=== PATIENT | male | born 1995 ===

== ENCOUNTER 2017-11-29 14:14 | Emergency (ER) | payer OTHER ==
[~2017-11-29] VITALS: Ht 165.1 cm; Wt 63.4 kg
[2017-11-29 14:17] VITALS: TEMP 36.5; Ht 165.1 cm; Wt 63.4 kg
[2017-11-29] MEDS ORDERED: CEFTRIAXONE SOD INJ 1 GM ADDVIAL IV STA (14:34)
[2017-11-29] MEDS ORDERED: LIDOCAINE/EPINEPHRINE 1% 20 ML VIAL INFIL ONE (14:45)
--- NOTE | 2017-11-29 14:50 | EMERGENCY ROOM VISIT NOTE ---
ED Visit Note First contact with patient: 14:20 CHIEF COMPLAINT: Foot laceration HISTORY OF PRESENT ILLNESS: This 22-year-old male patient presents to the emergency department with complaint of right foot pain after stepping on a piece of glass yesterday. Patient states that he was outside walking in his bare feet and stepped on a piece of broken beer bottle glass. He states that he washed the wound off with peroxide and covered with liquid Band-Aid to stop bleeding. Patient states that today his pain in his foot has been much worse especially with walking on the foot, and he has noticed increased swelling and redness of the area. He states that the pain is constant, throbbing, 5/10. He has taken ibuprofen yesterday with some improvement in the pain, and no medications today. Patient states that he went to [facility] today, who sent him to the ED for further evaluation. Patient denies any fevers or chills. The patient denies any other injuries. The patient's Tetanus shot is up to date. REVIEW OF SYSTEMS: A 6 system review of systems was completed with positives and pertinent negatives listed in the HPI. ALLERGIES: No known allergies. MEDICATIONS: No medications. PMH: No significant past medical or surgical history. Up-to-date on immunizations. SOCIAL HISTORY: Lives at home. He is a [employer] student. Denies tobacco use. PHYSICAL EXAM: Vital Signs: Reviewed Nurse's notes, vital signs stable. GENERAL : Pleasant and cooperative, in no acute distress, well-developed, well- nourished. SKIN: There is an erythematous indurated area on the sole of the right foot along the arch, with a small laceration at the center and scabbed material and skin glue over top. It is mildly fluctuant and very tender to palpation, warm to touch. No drainage noted.. There is a zone of inflammation around it, as well as some lymphangitic streaking upward towards the dorsum of the foot. There is no bleeding. Normal strength and movement of the right foot. Capillary refill less than 2 seconds. Normal sensation to light and sharp touch. HEART: Regular rate and rhythm, no murmurs, gallops, or rubs. Normal peripheral perfusion. 2+ radial and DP pulses of the extremities. No edema. LUNGS: Clear to auscultation bilaterally with no wheezes, rhonchi, crackles, or stridor. Equal expansion bilaterally. ABDOMEN: Soft, nontender, nondistended, normal bowel sounds throughout. NEURO: Alert, oriented 4. Normal strength and sensation in all 4 extremities. Normal speech. IMAGING: R FOOT MIN 3 VIEWS ROUTINE CLINICAL HISTORY: 22 years-old Male presenting with stepped on glass, eval FB. TECHNIQUE: Frontal, oblique, and lateral views of the right foot were obtained. COMPARISON: None. FINDINGS: No acute fracture or malalignment. No advanced degenerative change. Soft tissue swelling over the medial aspect of the hindfoot. No radiopaque foreign body. IMPRESSION: 1. No acute osseous injury. 2. Soft tissue swelling suggested over the medial hindfoot. 3. No radiopaque foreign body. Ultrasound is more sensitive for this diagnosis. EMERGENCY DEPARTMENT COURSE: I examined the patient. Differential diagnosis includes abscess, cellulitis, retained foreign body of the foot, among others. An x-ray of the foot was performed, there is no evidence of radiopaque foreign body on my exam. Bedside ultrasound was also utilized, confirming no presence of a foreign body in the soft tissue of the right foot. Labs are performed, noting leukocytosis with left shift, otherwise normal. The patient was given IV Rocephin and PO Bactrim to treat cellulitis of his foot. Verbal consent was obtained to perform the procedure. Using sterile technique, the wound was cleansed with Betadine. The area was sterilely draped. 2 ml of 1% buffered lidocaine with epinephrine was used to anesthetize the area on the sole of the right foot. Once the patient was anesthetized, the skin glue was removed and mild debridement was performed over 1 cm puncture wound to the sole of the foot. There was small amount of serous fluid drained from the wound, no purulent drainage noted. The puncture wound was further probed with a needle courier delivery driver and no purulent drainage was expressed. The puncture wound was then copiously irrigated with sterile saline under pressure. The area was then dressed with bacitracin and a sterile bandage. The patient tolerated the procedure well. Hemostasis was achieved. Patient was educated regarding wound care, follow-up, and return precautions, he verbalized understanding. Rx for Keflex and Bactrim were sent to the pharmacy and he was educated regarding these medications. The patient was discharged home in good condition and ambulatory. Current/Historical Medications Scheduled Cephalexin Monohydrate (Keflex), 500 MG PO QID Sulfa/Trimethoprim (Bactrim Ds 800MG/160MG), 1 TAB PO BID Allergies Coded Allergies: No Known Allergies (Unverified , 11/29/17) Vital Signs Date Time Temp Pulse Resp B/P (MAP) Pulse Ox O2 Delivery O2 Flow Rate FiO2 11/29/17 16:11 74 18 123/74 98 11/29/17 14:17 36.5 73 20 128/57 97 Room Air Laboratory Results 11/29/17 14:44 Red Blood Count 5.50, Mean Corpuscular Volume 84.2, Mean Corpuscular Hemoglobin 28.0, Mean Corpuscular Hemoglobin Concent 33.3, Mean Platelet Volume 9.8, Neutrophils (%) (Auto) 66.7, Lymphocytes (%) (Auto) 14.2, Monocytes (%) (Auto) 10.3, Eosinophils (%) (Auto) 8.2, Basophils (%) (Auto) 0.3, Neutrophils # (Auto ) 10.09, Lymphocytes # (Auto) 2.14, Monocytes # (Auto) 1.56, Eosinophils # (Auto ) 1.24, Basophils # (Auto) 0.04 11/29/17 14:44 Test 11/29/17 14:44 White Blood Count 15.11 K/uL (4.8-10.8) Red Blood Count 5.50 M/uL (4.7-6.1) Hemoglobin 15.4 g/dL (14.0-18.0) Hematocrit 46.3 % (42-52) Mean Corpuscular Volume 84.2 fL (80-100) Mean Corpuscular Hemoglobin 28.0 pg (25-34) Mean Corpuscular Hemoglobin Concent 33.3 g/dl (32-36) Platelet Count 327 K/uL (130-400) Mean Platelet Volume 9.8 fL (7.4-10.4) Neutrophils (%) (Auto) 66.7 % Lymphocytes (%) (Auto) 14.2 % Monocytes (%) (Auto) 10.3 % Eosinophils (%) (Auto) 8.2 % Basophils (%) (Auto) 0.3 % Neutrophils # (Auto) 10.09 K/uL (1.4-6.5) Lymphocytes # (Auto) 2.14 K/uL (1.2-3.4) Monocytes # (Auto) 1.56 K/uL (0.11-0.59) Eosinophils # (Auto) 1.24 K/uL (0-0.5) Basophils # (Auto) 0.04 K/uL (0-0.2) RDW Standard Deviation 40.8 fL (36.4-46.3) RDW Coefficient of Variation 13.3 % (11.5-14.5) Immature Granulocyte % (Auto) 0.3 % Immature Granulocyte # (Auto) 0.04 K/uL (0.00-0.02) Anion Gap 5.0 mmol/L (3-11) Est Creatinine Clear Calc Drug Dose 94.0 ml/min Estimated GFR () 112.6 Estimated GFR (Non- 97.2 BUN/Creatinine Ratio 10.7 (10-20) Calcium Level 8.7 mg/dl (8.5-10.1) Medications Administered Medications (Trade) Dose Ordered Sig/Jong Route Start Time Stop Time Status Last Admin Dose Admin Lidocaine/ Epinephrine (Xylocaine/Epine 1% Inj) 20 ml ONE ONCE INFIL 11/29/17 14:45 11/29/17 14:46 DC 11/29/17 14:46 20 ML Ceftriaxone Sodium (Rocephin Inj) 1 gm NOW STAT IV 11/29/17 14:34 11/29/17 14:36 DC 11/29/17 14:45 1 GM Trimethoprim/ Sulfamethoxazole (Septra Ds 800/ 160MG Tab) 1 tab NOW STAT PO 11/29/17 15:36 11/29/17 15:37 DC 11/29/17 15:59 1 TAB Departure Information Impression Primary Impression: Cellulitis of right foot without toes Dispostion Home / Self-Care Condition GOOD Prescriptions Cephalexin Monohydrate (Keflex) 500 Mg Cap 500 MG PO QID for 10 Days, #40 CAP Prov: Paula Valdez CRNP 11/29/17 Sulfa/Trimethoprim (Bactrim Ds 800MG/160MG) Tab 1 TAB PO BID for 10 Days, #19 TAB Prov: Paula Valdez CRNP 11/29/17 Referrals No Doctor, Assigned (PCP) Patient Instructions ED Infec Skin Cellulitis, ED Wound Puncture Foot, [facility] Additional Instructions You were seen in the Emergency Department for cellulitis (infection) of your right foot. You have been prescribed Bactrim and Keflex to be taken for 10 days. Both of these medications are antibiotics. Stop these medications and contact a medical provider if you were to develop any significant adverse side effects including: wheezing, shortness of breath, passing out, vomiting, or a diffuse rash. Always take antibiotics as directed and COMPLETE the ENTIRE course regardless of the improvement of your symptoms. Proper wound care is essential for adequate wound healing and infection prevention. You can shower and clean the wound with soap and water. Do not scour over the wound. Pat dry with a towel. Do not submerse the wound (i.e. bathe or swimming) until the wound is fully healed. You can use an antibiotic ointment with a dressing over the wound for the next 3-4 days. After this time you may leave the wound dry and open to the air. If crust develops over the wound you can use a Q-tip to apply a 1:1 peroxide:water solution to clean the wound. You should soak the foot in warm salt water 2-3 times a day for the next 3 days. This is to help improve the infection. He may also apply warm compresses to the area intermittently to help with pain and also to help improve the infection. Look for signs of worsening infection of the wound including: increased pain, swelling, foul discharge, streaking up the foot or leg, or fevers/chills/ feeling ill. If any of these are noticed you should return to the Emergency Department for further assessment and treatment. For pain control, you can use the following [id number] medicines (if >12 yo): - Extra strength (500mg/tab) Tylenol (acetaminophen) 1-2 tabs every 6-8 hours as needed. Do not exceed 6 tablets in a 24 hour period. Avoid taking more than 3 grams (3000 mg) of Tylenol per day. This includes any other sources of acetaminophen you may take on a regular basis. - Regular strength (200 mg/tab) Advil (ibuprofen) 1-2 tabs every 4-6 hours as needed. Do not exceed a dose of 3200 mg per day. Follow up with your PCP or at [facility] in 2 days for recheck of your wound, or sooner for worsening symptoms. Return to the emergency department if your symptoms worsen despite treatment course outlined above.
--- NOTE | 2017-11-29 14:54 | DIAGNOSTIC IMAGING REPORT ---
R FOOT MIN 3 VIEWS ROUTINE CLINICAL HISTORY: 22 years-old Male presenting with stepped on glass, eval FB. TECHNIQUE: Frontal, oblique, and lateral views of the right foot were obtained. COMPARISON: None. FINDINGS: No acute fracture or malalignment. No advanced degenerative change. Soft tissue swelling over the medial aspect of the hindfoot. No radiopaque foreign body. IMPRESSION: 1. No acute osseous injury. 2. Soft tissue swelling suggested over the medial hindfoot. 3. No radiopaque foreign body. Ultrasound is more sensitive for this diagnosis. Electronically signed by: Jerry Lindsey M.D. 11/29/2017 2:52 PM Dictated Date/Time: 11/29/2017 2:51 PM
[2017-11-29 15:00] LABS: BASO % 0.3 %; BASO ABS # 0.04 K/uL (0-0.2); EOS % 8.2 %; EOS ABS # 1.24 K/uL (0-0.5); HEMATOCRIT 46.3 % (42-52); HEMOGLOBIN 15.4 g/dL (14.0-18.0); IG# 0.04 K/uL (0.00-0.02); LYMPH % 14.2 %; LYMPH ABS # 2.14 K/uL (1.2-3.4); MEAN CELL VOLUME 84.2 fL (80-100); MEAN CORPUSCULAR HGB CONC 33.3 g/dl (32-36); MEAN PLATELET VOLUME 9.8 fL (7.4-10.4); MONO % 10.3 %; MONO ABS # 1.56 K/uL (0.11-0.59); NEUT % 66.7 %; NEUT ABS # 10.09 K/uL (1.4-6.5); PLATELET COUNT 327 K/uL (130-400); RED CELL DISTRIBUTION WIDTH CV 13.3 % (11.5-14.5); RED CELL DISTRIBUTION WIDTH SD 40.8 fL (36.4-46.3); WHITE BLOOD COUNT 15.11 K/uL (4.8-10.8)
[2017-11-29 15:16] LABS: CALCIUM 8.7 mg/dl (8.5-10.1); CREATININE 1.09 mg/dl (0.60-1.40); POTASSIUM 3.8 mmol/L (3.5-5.1)
[2017-11-29] MEDS ORDERED: SULFAMETHOXAZOLE/TRIMETHOPRIM DS 800/160MG TAB PO STA (15:36)
[2017-11-29] MEDS ORDERED: SULF800T23 PO (15:38)
[2017-11-29] MEDS ORDERED: CEPH500C PO (15:38)
[2017-11-29 16:11] VITALS: BP 123/74; PULSE 74; O2SAT 98
== END 2017-11-29 16:14 | disposition home or self-care (01) ==
LOC: C.EDB 14:16 → C.EDD 16:14
DX: L03.115 Cellulitis of right lower limb (principal)